=== PATIENT | male | born 1965 | race Caucasian/White ===

== ENCOUNTER 2018-07-25 11:43 | Emergency (ER) | payer OTHER ==
[2018-07-25 11:49] VITALS: BP 142/88; TEMP 97.9; BMI 30.1
[2018-07-25] MEDS ORDERED: NORCO 10-325 PO STA (12:28)
--- NOTE | 2018-07-25 12:35 | ED.PDOC ---
General ED Provider: Dr. RICK MATTHEWS Chief Complaint: Fall Stated Complaint: fall low back pain lumbar region fall was from a setp ladder 2 days ago . injury limited to the back pain. Time Seen by Physician: 12:00 Mode of Arrival: Walk-In Information Source: Patient Exam Limitations: No limitations Nursing and Triage Documentation Reviewed and Agree: Yes Does patient meet sepsis criteria?: No System Inflammatory Response Syndrome: Not Applicable Sepsis Protocol: For patient's 13 years and over: Temp is 96.8 and below OR 101 and greater Pulse >90 BPM Resp >20/minute Acutely Altered Mental Status Are patient's symptoms suggestive of a new infection, such as: -Pneumonia -Skin, Soft Tissue -Endocarditis -UTI -Bone, Joint Infection -Implantable Device -Acute Abdominal Infection -Wound Infection -Meningitis -Blood Stream Catheter Infection -Unknown Musculoskeletal Complaint Exam - Back Pain Complaint/Exam Mechanism of Injury: Reports: No known trauma Onset/Duration: 2 days ago Symptoms Are: Still present Timing: Constant Episodes Lasting: Days Initial Severity: Moderate Current Severity: Mild Location: Reports: Discrete Character: Reports: Aching Aggravating: Reports: Movements, Lifting, Bending, Walking Alleviating: Reports: Rest, Position Associated Signs and Symptoms: Denies: Swelling, Redness, Bruising, Fever, Weakness, Numbness, Tingling, Abdominal pain, Flank pain, Bladder incontinence, Bowel incontinence, Weight loss, Pain with weight bearing TAD Risk Factors: Reports: None Review of Systems - Review Of Systems Constitutional: Reports: No symptoms Eyes: Reports: No symptoms Ears, Nose, Mouth, Throat: Reports: No symptoms Respiratory: Reports: No symptoms Cardiac: Reports: No symptoms GI: Reports: No symptoms Musculoskeletal: Reports: Back pain Skin: Reports: No symptoms Neurological: Reports: No symptoms Endocrine: Reports: No symptoms Hematologic/Lymphatic: Reports: No symptoms All Other Systems: Reviewed and Negative Past Medical History - Past Medical History Previously Healthy: Yes Endocrine: Reports: DM 2, Dyslipidemia Cardiovascular: Reports: None Respiratory: Reports: None Hematological: Reports: None Gastrointestinal: Reports: None Genitourinary: Reports: None Neuro/Psych: Reports: None Musculoskeletal: Reports: None Cancer: Reports: None - Surgical History General Surgical History: Reports: None - Family History Family History: Reports: None - Social History Smoking Status: Never smoker Hx Substance Use: No (NONE) Alcohol Screening: None - Immunizations Tetanus Shot up to Date: Yes Physical Exam - Physical Exam Appearance: Well-appearing, No pain distress, Well-nourished Eyes: CESAR, EOMI, Conjunctiva clear ENT: Ears normal, Nose normal, Oropharynx normal Respiratory: Airway patent, Breath sounds clear, Breath sounds equal, Respirations nonlabored Cardiovascular: RRR, Pulses normal, No rub, No murmur GI/: Soft, Nontender, No masses, Bowel sounds normal, No Organomegaly Musculoskeletal: Normal strength, ROM intact, No edema, No calf tenderness Skin: Warm, Dry, Normal color Neurological: Sensation intact, Motor intact, Reflexes intact, Cranial nerves intact, Alert, Oriented Psychiatric: Affect appropriate, Mood appropriate Critical Care Note - Critical Care Note Total Time (mins): 0 Course - Course Orders, Labs, Meds: Orders Category Date Time Status CT LUMBAR SPINE W/O CONTRAST Stat RADS 07/25/18 12:28 Completed Vital Signs: Temp Pulse Resp BP Pulse Ox 07/25/18 11:44 97.9 F 72 18 142/88 H 97 Departure - Departure Time of Disposition: 13:00 Disposition: HOME SELF-CARE Discharge Problem: Lumbar back pain Instructions: Acute Low Back Pain (ED) Condition: Good Pt referred to PMD for follow-up: Yes IPMP verified?: No Additional Instructions: Please call your Family Physician as soon as possible to schedule a follow-up appointment.SULEMAN 10/325 TOD X3 DAYS #9 NO REFILLS Allergies/Adverse Reactions: Allergies No Known Allergies Allergy (Unverified 07/25/18 11:48) Home Medications: Ambulatory Orders Atorvastatin Calcium 10 mg PO DAILY 07/25/18 Escitalopram Oxalate [Lexapro] 10 mg PO DAILY 07/25/18 Metformin HCl 500 mg PO BID 07/25/18 Trazodone HCl 100 mg PO BEDTIME 07/25/18 Disposition Discussed With: Patient
--- NOTE | 2018-07-25 13:19 | CT ---
EXAM: CT lumbar spine without contrast HISTORY: Fall 2 days ago, left lumbar pain COMPARISON: None TECHNIQUE: CT lumbar spine performed without intravenous contrast. Coronal and sagittal reformatted images obtained. FINDINGS: The vertebral bodies normal height. No fracture. No subluxation. Multilevel marginal os teophyte formation. Mild multilevel intervertebral disc space narrowing. Multilevel facet arthrosis . The sacroiliac joints intact with mild degenerative change. Bridging osteophytes are seen on on t he right. Aorta normal in caliber. Minimal sub centimeter hyperdense left renal cyst suggested. T12-L1: Posterior disc osteophyte complex and facet arthrosis causing mild central canal and mild bi lateral neural foraminal narrowing. L1-L2: Posterior disc osteophyte complexes and facet arthrosis without central canal or neural ajay inal narrowing. L2-L3: Posterior disc osteophyte complex and facet arthrosis causing mild to moderate central canal and mild left neural foraminal narrowing. L3-L4: Posterior disc osteophyte complex and facet arthrosis causing moderate central canal and mild to moderate bilateral neural foraminal narrowing. L4-L5: Posterior disc osteophyte complex and facet arthrosis causing moderate central canal and mode rate bilateral neural foraminal narrowing. L5-S1: Posterior disc osteophyte complex and facet arthrosis causing moderate bilateral neural ajay inal narrowing. IMPRESSION: 1. No fracture or subluxation. 2. Chronic discogenic degenerative disease and facet arthrosis. Please see segmental analysis, noti ng central canal and neural foraminal narrowing.
== END 2018-07-25 13:27 | disposition home or self-care (01) ==
LOC: ED 11:43
DX: M54.5 Low back pain (principal); W11.XXXA Fall on and from ladder, initial encounter
CPT/HCPCS: 99283